=== PATIENT | male | born 1950 | race Caucasian/White ===

== ENCOUNTER → 2017-03-07 | Outpatient (CLI) | payer OTHER | LOC: FIMAGING 16:09 | PROVIDERS: ATTEND Family Medicine | DX: M51.36 Other intervertebral disc degeneration, lumbar region (principal); M41.86 Other forms of scoliosis, lumbar region ==

== ENCOUNTER → 2017-04-13 | Outpatient (CLI) | payer OTHER | LOC: FIMAGING 09:08 | PROVIDERS: ATTEND Family Medicine | DX: M51.36 Other intervertebral disc degeneration, lumbar region (principal); M51.26 Other intervertebral disc displacement, lumbar region ==

== ENCOUNTER → 2017-04-29 | Outpatient (CLI) | payer OTHER ==
[~2017-04-29] MED LIST: GADOBUTROL 10 ML VIAL IVP ONE
== END ==
LOC: FIMAGING 18:31
PROVIDERS: ATTEND Physician Assistant
DX: H90.5 Unspecified sensorineural hearing loss (principal)
CPT/HCPCS: 70553; A9585

== ENCOUNTER → 2017-06-12 | Outpatient (CLI) | payer OTHER | LOC: FIMAGING 07:36 | PROVIDERS: ATTEND Surgery | DX: L97.321 Non-pressure chronic ulcer of left ankle limited to breakdown of skin (principal); I87.2 Venous insufficiency (chronic) (peripheral) ==

== ENCOUNTER 2017-08-01 07:06 | Day surgery (SDC) | payer OTHER ==
[2017-08-01] MEDS ORDERED: GLUCAGON HCL 1 MG VIAL IVP PRN (07:33)
[2017-08-01] MEDS ORDERED: NS 1,000 ML IV ONE (07:33)
[2017-08-01] MEDS ORDERED: fentaNYL 100 MCG/2 ML INJ IVP PRN (07:33)
[2017-08-01] MEDS ORDERED: ONDANSETRON 4 MG/2 ML VIAL IVP ONE (07:33)
[2017-08-01] MEDS ORDERED: PROTAMINE SULFATE 50 MG/5 ML VIAL IVP PRN (07:33)
[2017-08-01] MEDS ORDERED: MIDAZOLAM 2 MG/2 ML VIAL IVP PRN (07:33)
[2017-08-01] MEDS ORDERED: NALOXONE HCL 0.4 MG/ML INJ IVP PRN (07:33)
[2017-08-01] MEDS ORDERED: MEPERIDINE 25 MG/ML SYR IVP PRN (07:33)
[2017-08-01] MEDS ORDERED: HEPARIN 10,000 UNIT/10 ML MDV (1,000 UNIT/ML) IVP PRN (07:33)
[2017-08-01] MEDS ORDERED: ALTEPLASE 2 MG VIAL IVP PRN (07:33)
[2017-08-01] MEDS ORDERED: FLUMAZENIL 0.5 MG/5 ML MDV IVP PRN (07:33)
[2017-08-01] MEDS ORDERED: SODIUM TETRADECYL SULFATE 3% 2 ML VIAL IV ONE (08:40)
[2017-08-01] MEDS ORDERED: LIDO/EPI 1% **for epidural** 30 ML SDV ONE (08:41)
[2017-08-01] MEDS ORDERED: IOPAMIDOL (ISOVUE-300) 100 ML BTL ONE (08:41)
--- NOTE | 2017-08-01 09:18 | PDGENHP ---
History & Physical Chief Complaint: Nonhealing wounds, both legs. History of Present Illness: Endovenous ablations of leg veins in [place], 2006. Improved for awhile, but problems returned. Wounds opened in April 2017. Seeing Dr. [facility], who refers patient. Pertinent Past, Social, Family History: HTN. Hepatitis C. Cirrhosis. Esophageal varices bled 2006. Cellulitis in right leg 2013. Quit smoking 30 years ago. Anemia, thrombocytopenia. Relevant Physical Exam: Bilateral leg wounds. Photos taken. Cardiorespiratory Assessment: Lungs clear to auscultation. Heart RRR, no murmur , 60 bpm.
--- NOTE | 2017-08-01 09:25 | PDPROPOC ---
Sedation Plan of Care Sedation Plan of Care: vital signs stable, mental status noted, patient educated of risks, benefits, alternatives, patient can tolerate sedation ASA Classification: ASA 3 Planned drugs: fentanyl, midazolam Mallampati Score: Class 1 Mallampati Reference Image: Patient passed 3-3-2 rule?: Yes (3-3-2)
[2017-08-01] MEDS ORDERED: NITROGLYCERIN 2% 1 GM PACKET ONE (10:06)
[2017-08-01 10:30] VITALS: PULSE 54
[2017-08-01] MEDS ORDERED: fentaNYL 100 MCG/2 ML INJ ONE ×2 (10:47→11:21)
[2017-08-01] MEDS ORDERED: MIDAZOLAM 2 MG/2 ML VIAL ONE ×2 (10:47→11:22)
[2017-08-01 10:51] VITALS: TEMP 98
[2017-08-01] MEDS ORDERED: LIDOCAINE 1% 300 MG/30 ML SDV ONE (11:27)
[2017-08-01] MEDS ORDERED: HYDROCODONE/APAP 5/325 TAB PO PRN (11:53)
[2017-08-01] MEDS ORDERED: IBUPROFEN 200 MG TAB PO ONE (11:53)
[2017-08-01] MEDS ORDERED: ONDANSETRON 4 MG/2 ML VIAL IVP PRN (11:53)
[2017-08-01] MEDS ORDERED: ONDANSETRON DISINTEGRATING 4 MG TAB PO PRN (11:53)
--- NOTE | 2017-08-01 11:53 | PDRADPN ---
Radiology Procedure Note Date of Procedure: 08/01/17 Radiologist: Zachary Trujillo Anesthesia: IV Sedation Pre-op Diagnosis: Nonhealing leg ulcers Post-op Diagnosis: Same Indication: Superficial venous reflux Procedure: Endovenous laser ablation both legs. Sclerotherapy right leg. Finding(s): EVLA: Right ALT vein and short saphenous vein. Left GSV remnant. Sclerotherapy right calf veins with 0.75% sotradecol 3:1 foam Inf/Abcess present in the surg proc area at time of surgery?: No EBL: Minimal Complications: None.
[2017-08-01 14:39] VITALS: BP 117/78; RESP 16; O2SAT 96
== END 2017-08-01 14:25 | disposition home or self-care (01) ==
LOC: FIMAGING 07:06
PROVIDERS: ATTEND Radiology Diagnostic Radiology
PROC: 3E033TZ Introduction of Destructive Agent into Peripheral Vein, Percutaneous Approach (ICD-10-PCS; principal; 2017-08-01 12:05)
PROC: 065Y3ZZ Destruction of Lower Vein, Percutaneous Approach (ICD-10-PCS; principal; 2017-08-01 12:05)
PROC: 065Q3ZZ Destruction of Left Saphenous Vein, Percutaneous Approach (ICD-10-PCS; principal; 2017-08-01 12:05)
PROC: 065P3ZZ Destruction of Right Saphenous Vein, Percutaneous Approach (ICD-10-PCS; principal; 2017-08-01 12:05)
DX: I87.333 Chronic venous hypertension (idiopathic) with ulcer and inflammation of bilateral lower extremity (principal); L97.909 Non-pressure chronic ulcer of unspecified part of unspecified lower leg with unspecified severity; I87.2 Venous insufficiency (chronic) (peripheral); I10 Essential (primary) hypertension; B18.2 Chronic viral hepatitis C; K74.60 Unspecified cirrhosis of liver; Z87.891 Personal history of nicotine dependence
CPT/HCPCS: 36471; 36478; 75820; C1769; J2250; J2310; J3010; Q9967

== ENCOUNTER → 2017-10-15 | Outpatient (CLI) | payer OTHER | LOC: FIMAGING 07:36 | PROVIDERS: ATTEND Radiology Diagnostic Radiology | DX: I87.331 Chronic venous hypertension (idiopathic) with ulcer and inflammation of right lower extremity (principal); L97.321 Non-pressure chronic ulcer of left ankle limited to breakdown of skin ==

== ENCOUNTER → 2017-11-26 | Day surgery (SDC) | payer OTHER ==
[~2017-11-26] MED LIST changes: -GADOBUTROL 10 ML VIAL IVP ONE; +SODIUM TETRADECYL SULFATE 3% 2 ML VIAL IV ONE
== END | disposition home or self-care (01) ==
LOC: FIMAGING 13:12
PROVIDERS: ATTEND Radiology Diagnostic Radiology
PROC: 3E033TZ Introduction of Destructive Agent into Peripheral Vein, Percutaneous Approach (ICD-10-PCS; principal; 2017-11-26)
DX: I83.93 Asymptomatic varicose veins of bilateral lower extremities (principal)

== ENCOUNTER → 2017-12-24 | Outpatient (CLI) | payer OTHER | LOC: FIMAGING 09:47 | PROVIDERS: ATTEND Surgery | DX: K76.6 Portal hypertension (principal); I81 Portal vein thrombosis; R16.1 Splenomegaly, not elsewhere classified; K57.30 Diverticulosis of large intestine without perforation or abscess without bleeding; L97.811 Non-pressure chronic ulcer of other part of right lower leg limited to breakdown of skin; I87.2 Venous insufficiency (chronic) (peripheral); R60.9 Edema, unspecified | CPT/HCPCS: 82565-PO ==

== ENCOUNTER → 2018-01-24 | Day surgery (SDC) | payer OTHER | END | disposition home or self-care (01) | LOC: FIMAGING 08:36 | PROVIDERS: ATTEND Radiology Diagnostic Radiology | DX: I83.813 Varicose veins of bilateral lower extremities with pain (principal); I83.10 Varicose veins of unspecified lower extremity with inflammation; I83.009 Varicose veins of unspecified lower extremity with ulcer of unspecified site; I83.002 Varicose veins of unspecified lower extremity with ulcer of calf ==